=== PATIENT | male | born 2000 | race Two or more races ===

== ENCOUNTER 2018-06-28 09:16 | Day surgery (SDC) | payer OTHER ==
[~2018-06-28 09:16] MED LIST: CEFAZOLIN 1 GM INJ; CEFAZOLIN 2 GM/50 ML (PMX) 50 ML IVPB; SOD CHLORIDE 0.9% 1,000 ML IV
[2018-06-28] MEDS ORDERED: FENTAnyl 50 MCG/ML VIAL IV (12:30)
[2018-06-28] MEDS ORDERED: METOCLOPRAMIDE 10 MG INJ IV (12:30)
[2018-06-28] MEDS ORDERED: DIPHENHYDRAMINE 50 MG INJ IV (12:30)
[2018-06-28] MEDS ORDERED: ONDANSETRON 4 MG INJ IV (12:30)
[2018-06-28] MEDS ORDERED: MIDAZOLAM 1 MG/ML 2 ML INJ IV (12:30)
[2018-06-28] MEDS ORDERED: HYDROmorphONE 1 MG/5 ML IV SYRINGE IV (12:30)
[2018-06-28] MEDS ORDERED: LIDOCAINE 2% (SDV) 5 ML INJ (14:06)
[2018-06-28] MEDS ORDERED: FENTAnyl 50 MCG/ML VIAL (14:06)
[2018-06-28] MEDS ORDERED: DEXAMETHASONE 4 MG/ML 1 ML INJ (14:06)
[2018-06-28] MEDS ORDERED: PROPOFOL 20 ML (14:06)
[2018-06-28] MEDS ORDERED: ROCURONIUM 50 MG INJ (14:06)
[2018-06-28] MEDS ORDERED: ONDANSETRON 4 MG INJ (14:06)
[2018-06-28] MEDS ORDERED: MIDAZOLAM 1 MG/ML 2 ML INJ (14:06)
[2018-06-28] MEDS ORDERED: SUGAMMADEX SODIUM 200 MG/2 ML VIAL IV (14:27)
[2018-06-28] MEDS ORDERED: ACETAMINOPHEN 1000MG/100ML IV 100 ML (14:29)
[2018-06-28] MEDS ORDERED: HYDROmorphONE 2 MG/ML SYG (14:39)
[2018-06-28] MEDS ORDERED: HYDROCODONE/APAP (7.5/325) TAB PO (15:30)
[2018-06-28] MEDS: MEPERIDINE 25 MG INJ IV (16:23)
[2018-06-28] MEDS ORDERED: HYDROCODONE/APAP (5/325) TAB PO (17:00)
== END 2018-06-28 17:48 | disposition home or self-care (01) ==
LOC: SDS 09:16
DX: N62 Hypertrophy of breast (principal)
CPT/HCPCS: 19300; 88307